=== PATIENT | male | born 1945 | race Caucasian/White ===

== ENCOUNTER 2017-06-26 12:21 | Emergency (ER) | payer MEDICARE ==
[~2017-06-26] VITALS: Ht 188 cm; Wt 100.0 kg
[~2017-06-26 12:21] MED LIST: HORMONE THERAPY; LISINOP/HCTZ1 TA1 PO; NAPROSYN500 MG PO; NO HOME MEDS
[2017-06-26 13:20] LABS: HEMATOCRIT 33.6 % (39.0-50.0); HEMOGLOBIN 10.4 g/dl (14.0-18.0); MEAN CELL VOLUME 82.8 fL CALC (80.0-100.0); MEAN CORPUSCULAR HGB 25.6 pG CALC (26.0-32.0); NEUT# 7.11 thou/uL (1.82-7.42); RED BLOOD COUNT 4.06 mill/uL (4.70-6.10)
[2017-06-26 13:33] LABS: ALBUMIN 4.2 g/dL (3.2-5.0); ALKALINE PHOSPHATASE 112 u/l (38-126); AMYLASE 48 u/l (30-110); ANION GAP 17 (6-22 (CALC)); BILIRUBIN, TOTAL 0.8 mg/dL (0.0-1.4); BUN 18 mg/dL (8-23); BUN/CREATININE RATIO 19 (12-20 (CALC)); CARBON DIOXIDE 24 mmol/l (22-30); CHLORIDE 102 mmol/l (95-108); GFR > 60 ML/MIN (>=60 (CALC)); GFR FOR AFR.AMER. > 60 ML/MIN (>=60 (CALC)); GLUCOSE 166 mg/dL (82-115); LIPASE 84 u/l (23-300); POTASSIUM 4.2 mmol/l (3.5-5.1); SGOT/AST 74 u/l (19-48); SGPT/ALT 75 u/l (11-66); SODIUM 139 mmol/l (137-146); TOTAL PROTEIN 7.5 g/dL (6.3-8.2)
[2017-06-26 13:45] LABS: MYOGLOBIN 99 ng/mL (0 - 121)
[2017-06-26] MEDS ORDERED: ZOFRAN ODT4 MG PO (16:34)
[2017-06-26] MEDS ORDERED: MECLIZINE25 MG PO (16:34)
[2017-06-26 16:42] VITALS: BP 105/57
== END 2017-06-26 16:58 | disposition home or self-care (01) ==
LOC: ED 12:21
PROVIDERS: Emergency Medicine
DX: R42 Dizziness and giddiness (principal); R00.0 Tachycardia, unspecified; I48.91 Unspecified atrial fibrillation; R11.10 Vomiting, unspecified; Z79.899 Other long term (current) drug therapy; C61 Malignant neoplasm of prostate; C79.51 Secondary malignant neoplasm of bone

== ENCOUNTER 2017-09-03 12:42 | Emergency (ER) | payer MEDICARE ==
[~2017-09-03] VITALS: Ht 188 cm; Wt 129.0 kg
[~2017-09-03 12:42] MED LIST changes: +MECLIZINE25 MG PO; +ZOFRAN ODT4 MG PO
[2017-09-03 13:34] LABS: HEMATOCRIT 26.1 % (39.0-50.0); HEMOGLOBIN 7.7 g/dl (14.0-18.0); IMMATURE GRANULOCYTES 1.3 % (0.0-1.0); MEAN CELL VOLUME 80.3 fL CALC (80.0-100.0); MEAN CORPUSCULAR HGB 23.7 pG CALC (26.0-32.0); MEAN CORPUSCULAR HGB CONC 29.5 g/L CALC (32.0-36.0); NEUT# 7.97 thou/uL (1.82-7.42); RED BLOOD COUNT 3.25 mill/uL (4.70-6.10); RED CELL DISTRI WIDTH 19.8 % (11.5-15.5)
[2017-09-03 13:43] LABS: ALBUMIN 2.8 g/dL (3.2-5.0); ALKALINE PHOSPHATASE 184 u/l (38-126); ANION GAP 14 (6-22 (CALC)); BILIRUBIN, TOTAL 0.9 mg/dL (0.0-1.4); BUN 15 mg/dL (8-23); BUN/CREATININE RATIO 22 (12-20 (CALC)); CALCIUM 7.7 mg/dL (8.4-10.2); CARBON DIOXIDE 24 mmol/l (22-30); CHLORIDE 98 mmol/l (95-108); CREATININE 0.7 mg/dL (0.7-1.3); GFR > 60 ML/MIN (>=60 (CALC)); GFR FOR AFR.AMER. > 60 ML/MIN (>=60 (CALC)); GLUCOSE 159 mg/dL (82-115); POTASSIUM 4.1 mmol/l (3.5-5.1); SGOT/AST 73 u/l (19-48); SGPT/ALT 59 u/l (11-66); SODIUM 132 mmol/l (137-146); TOTAL PROTEIN 5.2 g/dL (6.3-8.2)
[2017-09-03 14:13] LABS: URINE BILIRUBIN - DIPSTICK NEGATIVE (NEGATIVE); URINE BLOOD DIPSTICK NEGATIVE (NEGATIVE); URINE CLARITY CLEAR; URINE COLOR YELLOW; URINE GLUCOSE - DIPSTICK NEGATIVE (NEGATIVE); URINE KETONE NEGATIVE (NEGATIVE); URINE LEUK ESTERASE NEGATIVE (NEGATIVE); URINE NITRITE - DIPSTICK NEGATIVE (Negative); URINE PH 5.5 (4.5-8.0); URINE PROTEIN - DIPSTICK TRACE mg/dL (NEG-TRACE); URINE SPECIFIC GRAVITY 1.025; URINE UROBILINOGEN - DIPSTICK 0.2 E.U./dL (0.2)
[2017-09-03] MEDS ORDERED: OXYCODONE HCL5 MG PO (16:29)
[2017-09-03 17:30] VITALS: BP 123/89
== END 2017-09-03 17:31 ==
LOC: ED 12:42
PROVIDERS: Family Medicine
DX: R91.8 Other nonspecific abnormal finding of lung field (principal); C61 Malignant neoplasm of prostate; C79.51 Secondary malignant neoplasm of bone; C78.7 Secondary malignant neoplasm of liver and intrahepatic bile duct; R53.1 Weakness; I48.91 Unspecified atrial fibrillation; J90 Pleural effusion, not elsewhere classified; R11.2 Nausea with vomiting, unspecified; R06.02 Shortness of breath; R50.9 Fever, unspecified; R30.0 Dysuria; K59.00 Constipation, unspecified; I10 Essential (primary) hypertension
CPT/HCPCS: Q9967

== ENCOUNTER 2017-09-09 11:32 | Emergency (ER) | payer MEDICARE ==
[~2017-09-09] VITALS: Ht 188 cm; Wt 89.0 kg
[~2017-09-09 11:32] MED LIST changes: +OXYCODONE HCL5 MG PO
[2017-09-09 12:03] LABS: HEMATOCRIT 25.9 % (39.0-50.0); HEMOGLOBIN 8.2 g/dl (14.0-18.0); IMMATURE GRANULOCYTES 2.2 % (0.0-1.0); MEAN CORPUSCULAR HGB 24.7 pG CALC (26.0-32.0); MEAN CORPUSCULAR HGB CONC 31.7 g/L CALC (32.0-36.0); NEUT# 10.24 thou/uL (1.82-7.42); RED BLOOD COUNT 3.32 mill/uL (4.70-6.10); RED CELL DISTRI WIDTH 19.9 % (11.5-15.5)
[2017-09-09 12:19] LABS: ALKALINE PHOSPHATASE 303 u/l (38-126); ANION GAP 12 (6-22 (CALC)); BILIRUBIN, TOTAL 1.5 mg/dL (0.0-1.4); BUN 12 mg/dL (8-23); BUN/CREATININE RATIO 20 (12-20 (CALC)); CARBON DIOXIDE 25 mmol/l (22-30); CHLORIDE 96 mmol/l (95-108); CREATININE 0.6 mg/dL (0.7-1.3); GFR > 60 ML/MIN (>=60 (CALC)); GFR FOR AFR.AMER. > 60 ML/MIN (>=60 (CALC)); GLUCOSE 94 mg/dL (82-115); POTASSIUM 4.1 mmol/l (3.5-5.1); SGOT/AST 111 u/l (19-48); SGPT/ALT 81 u/l (11-66); SODIUM 129 mmol/l (137-146); TOTAL PROTEIN 5.8 g/dL (6.3-8.2)
[2017-09-09 15:11] LABS: URINE BILIRUBIN - DIPSTICK NEGATIVE (NEGATIVE); URINE BLOOD DIPSTICK NEGATIVE (NEGATIVE); URINE CLARITY CLEAR; URINE COLOR YELLOW; URINE GLUCOSE - DIPSTICK NEGATIVE (NEGATIVE); URINE KETONE NEGATIVE (NEGATIVE); URINE LEUK ESTERASE NEGATIVE (NEGATIVE); URINE NITRITE - DIPSTICK NEGATIVE (Negative); URINE PROTEIN - DIPSTICK NEGATIVE (NEG-TRACE); URINE SPECIFIC GRAVITY <=1.005
[2017-09-09 16:48] VITALS: BP 128/74
== END 2017-09-09 17:10 ==
LOC: ED 11:32
PROVIDERS: Emergency Medicine
DX: I50.9 Heart failure, unspecified (principal); C61 Malignant neoplasm of prostate; C79.51 Secondary malignant neoplasm of bone; I10 Essential (primary) hypertension; R53.1 Weakness; R05 Cough; R50.9 Fever, unspecified; R00.0 Tachycardia, unspecified
CPT/HCPCS: Q9967

== ENCOUNTER 2017-10-24 23:05 | Emergency (ER) | payer MEDICARE ==
[~2017-10-24] VITALS: Ht 188 cm; Wt 100.0 kg
[2017-10-24 23:48] LABS: HEMATOCRIT 28.7 % (39.0-50.0); HEMOGLOBIN 9.1 g/dl (14.0-18.0); IMMATURE GRANULOCYTES 2.4 % (0.0-1.0); MEAN CELL VOLUME 86.2 fL CALC (80.0-100.0); MEAN CORPUSCULAR HGB 27.3 pG CALC (26.0-32.0); MEAN CORPUSCULAR HGB CONC 31.7 g/L CALC (32.0-36.0); NEUT# 12.3 thou/uL (1.82-7.42); RED BLOOD COUNT 3.33 mill/uL (4.70-6.10); RED CELL DISTRI WIDTH 23.7 % (11.5-15.5)
[2017-10-24 23:57] LABS: ALKALINE PHOSPHATASE 596 u/l (38-126); ANION GAP 15 (6-22 (CALC)); BILIRUBIN, TOTAL 1.5 mg/dL (0.0-1.4); BUN 39 mg/dL (8-23); BUN/CREATININE RATIO 38 (12-20 (CALC)); CALCIUM 7.9 mg/dL (8.4-10.2); CARBON DIOXIDE 20 mmol/l (22-30); CHLORIDE 98 mmol/l (95-108); GFR > 60 ML/MIN (>=60 (CALC)); GFR FOR AFR.AMER. > 60 ML/MIN (>=60 (CALC)); GLUCOSE 76 mg/dL (82-115); POTASSIUM 5.1 mmol/l (3.5-5.1); SGOT/AST 235 u/l (19-48); SGPT/ALT 113 u/l (11-66); SODIUM 128 mmol/l (137-146); TOTAL PROTEIN 5.8 g/dL (6.3-8.2)
[2017-10-24 23:58] LABS: INFLUENZA A NONE DETECTED (NONE DETECT); INFLUENZA B NONE DETECTED (NONE DETECT)
[2017-10-25 00:09] LABS: MYOGLOBIN 86 ng/mL (0 - 121)
[2017-10-25 01:02] LABS: URINE BILIRUBIN - DIPSTICK NEGATIVE (NEGATIVE); URINE BLOOD DIPSTICK NEGATIVE (NEGATIVE); URINE CLARITY SL CLOUDY; URINE COLOR YELLOW; URINE GLUCOSE - DIPSTICK NEGATIVE (NEGATIVE); URINE KETONE NEGATIVE (NEGATIVE); URINE LEUK ESTERASE NEGATIVE (NEGATIVE); URINE NITRITE - DIPSTICK NEGATIVE (Negative); URINE PROTEIN - DIPSTICK NEGATIVE (NEG-TRACE); URINE SPECIFIC GRAVITY 1.015
[2017-10-25 01:33] VITALS: BP 93/50
--- NOTE | 2017-10-26 10:33 | NUR ---
BLOOD CULTURE RESULTS (+) FOR GRAM (+) COCCI RESULTS FAXED AND CALLED TO ANGELO BARKLEY AT [facility]
--- NOTE | 2017-10-27 14:03 | NUR ---
BLOOD CULTURES RESULTS POSITIVE FOR STAPH EPIDERMIDIS FAXED AND CALLED TO GEENA BARKLEY AT [facility]. FAX # [phone]
== END 2017-10-25 01:31 ==
LOC: ED 23:05
PROVIDERS: Emergency Medicine
PROC: 0T9B70Z Drainage of Bladder with Drainage Device, Via Natural or Artificial Opening (ICD-10-PCS; principal; 2017-10-25)
DX: A41.9 Sepsis, unspecified organism (principal); R50.9 Fever, unspecified; C61 Malignant neoplasm of prostate; C78.7 Secondary malignant neoplasm of liver and intrahepatic bile duct; C79.51 Secondary malignant neoplasm of bone; R53.1 Weakness; R00.0 Tachycardia, unspecified; I48.91 Unspecified atrial fibrillation; I10 Essential (primary) hypertension; B95.7 Other staphylococcus as the cause of diseases classified elsewhere